=== PATIENT | male | born 1980 | race Caucasian/White ===

== ENCOUNTER 2020-09-22 07:24 | Emergency (ER) | payer OTHER ==
[2020-09-22 08:30] LABS: BUN/CREAT RATIO (CALC) 17.2 RATIO; CREATININE 0.99 mg/dL (0.67-1.17); POTASSIUM 3.8 mmol/L (3.5-5.1)
[2020-09-22 08:34] LABS: BASOPHIL 0.5 % (0-2); EOSINOPHIL 0 % (0-5); HCT 48.6 % (42.0-52.0); HGB 16.7 g/dl (13.2-18.0); MCH 30.5 pg (25.0-31.0); MCHC 34.4 g/dL (32.0-36.0); MCV 88.7 fL (78.0-100.0); MONOCYTE 7.5 % (0-12); MPV 10.3 fL (6.0-9.5); NEUTROPHIL 63.1 % (41-80); NRBC 0; PLT 138 K/uL (150-400); RBC 5.48 M/uL (4.70-6.00); RDW 11.5 % (11.5-14.0); WBC 4.3 K/uL (4.0-10.5)
[2020-09-22 08:41] LABS: LYMPHOCYTE 28.4 % (15-48)
[2020-09-22] MEDS ORDERED: ONDANSETRON ODT4 MG PO (09:08)
== END 2020-09-22 09:30 | disposition home or self-care (01) ==
LOC: FER 07:24
PROVIDERS: Emergency Medicine
DX: U07.1 COVID-19 (principal)
CPT/HCPCS: 36415; 71045; 80048; 85025; Q0162; U0002